=== PATIENT | female | born 1985 | race Hispanic/Latino ===

== ENCOUNTER 2017-10-07 05:43 | Observation (INO) | payer BC ==
[2017-10-06 17:14] VITALS: BP 148/68
[2017-10-06 17:21] LABS: BASOPHILS % (AUTO) 0.7 % (0.0-5.0); EOSINOPHILS % (AUTO) 1.9 % (0.0-8.0); HEMATOCRIT 25.4 % (36-48); LYMPHOCYTES % (AUTO) 34.5 % (21.0-51.0); MEAN CORPUSCULAR HEMOGLOBIN 21.7 pg (27.0-33.0); MEAN CORPUSCULAR VOLUME 67.8 fL (79-99); MONOCYTES % (AUTO) 8.2 % (3.0-13.0); NEUTROPHILS % (AUTO) 54.7 % (40.0-77.0); NUCLEATED RED BLOOD CELLS 0.1 % (0.0-0.19); PLATELET COUNT (AUTO) 331 K/uL (130-400); RED BLOOD CELL COUNT(AUTO) 3.74 MIL/uL (4.00-5.50); RED CELL DISTRIBUTION WIDTH 23.2 % (11.0-15.5); WHITE BLOOD COUNT (AUTO) 5.6 K/uL (4.8-10.8)
[2017-10-07] VITALS (21 sets, daily range): BP systolic 112–141; BP diastolic 68–84
[~2017-10-07] VITALS: Ht 154.9 cm; Wt 102.1 kg
[2017-10-07] MEDS ORDERED: LACTATED RINGERS 1000ML 1,000 ML IV SCH (07:15)
[2017-10-07] MEDS ORDERED: CEFAZOLIN 3GM /D5W 100ML 100 ML IV SCH (07:15)
[2017-10-07] MEDS ORDERED: GLYCOPYRROLATE 0.2 MG/ML 5 ML VIAL ONE (07:21)
[2017-10-07] MEDS ORDERED: MIDAZOLAM HCL 1 MG/ML 2ML VIAL ONE (07:21)
[2017-10-07] MEDS ORDERED: LIDOCAINE PF 2% 5ML ABBOJECT ONE (07:21)
[2017-10-07] MEDS ORDERED: ONDANSETRON HCL 4 MG/2 ML VIAL ONE (07:21)
[2017-10-07] MEDS ORDERED: NEOSTIGMINE 5MG/5ML SYR IV ONE (07:21)
[2017-10-07] MEDS ORDERED: DEXAMETHASONE SOD PHOSPHATE 10MG/ML 1ML VIAL ONE (07:21)
[2017-10-07] MEDS ORDERED: PROPOFOL 10 MG/ML 20ML VIAL IV ONE (07:21)
[2017-10-07] MEDS ORDERED: FENTANYL CITRATE PF 50 MCG/1 ML 2ML VIAL ONE ×5 (07:22→10:28)
[2017-10-07] MEDS: CEFAZOLIN SODIUM 1 GM VIAL ONE ×2 (07:29→07:40)
[2017-10-07] MEDS ORDERED: EPHEDRINE SULFATE 50 MG/ML AMPULE ONE (08:17)
[2017-10-07] MEDS ORDERED: MEPERIDINE-PF 25 MG/ML SYG ONE ×2 (09:59→10:10)
[2017-10-07] MEDS ORDERED: PROMETHAZINE HCL 25 MG/ML 1ML AMPULE IM ONE (10:10)
[2017-10-07] MEDS ORDERED: MEPERIDINE-PF 75 MG/ML SYG IM PRN (11:30)
[2017-10-07] MEDS ORDERED: PROMETHAZINE HCL 25 MG/ML 1ML AMPULE IM PRN ×2 (11:30)
[2017-10-07] MEDS ORDERED: BISACODYL 10 MG SUPP.RECT RC PRN (11:30)
[2017-10-07] MEDS: ACETAMINOPHEN-CODEINE 300/30MG TAB PO PRN ×2 (15:39→19:50)
[2017-10-07] MEDS: DEXTROSE 5 %-0.45 % NACL 1,000 ML IV PRN (18:12)
[2017-10-07] MEDS: SIMETHICONE 80 MG TAB.CHEW PO PRN (22:06)
[2017-10-07] MEDS: DOCUSATE SODIUM 100 MG CAP PO PRN (22:06)
[2017-10-08] MEDS: DEXTROSE 5 %-0.45 % NACL 1,000 ML IV PRN (03:00)
[2017-10-08] MEDS: IBUPROFEN 600 MG TABLET PO PRN ×2 (03:12→09:27)
[2017-10-08 03:42] VITALS: BP 141/83
[2017-10-08 05:31] LABS: HEMATOCRIT 24.5 % (36-48); MEAN CORPUSCULAR HEMOGLOBIN 20.9 pg (27.0-33.0); MEAN CORPUSCULAR HGB CONC 30.9 g/dL (32.0-36.0); MEAN CORPUSCULAR VOLUME 67.7 fL (79-99); PLATELET COUNT (AUTO) 361 K/uL (130-400); RED BLOOD CELL COUNT(AUTO) 3.61 MIL/uL (4.00-5.50); WHITE BLOOD COUNT (AUTO) 12.6 K/uL (4.8-10.8)
[2017-10-08 07:50] VITALS: BP 147/99
[2017-10-08] MEDS: DOCUSATE SODIUM 100 MG CAP PO PRN (09:25)
[2017-10-08] MEDS: SIMETHICONE 80 MG TAB.CHEW PO PRN (09:27)
[2017-10-08 11:36] VITALS: BP 146/94
== END 2017-10-08 14:50 | disposition home or self-care (01) ==
LOC: DAH 05:43 → WSH 05:44
PROVIDERS: ADMIT Obstetrics & Gynecology; ATTEND Obstetrics & Gynecology
DX: N92.1 Excessive and frequent menstruation with irregular cycle (principal); N73.6 Female pelvic peritoneal adhesions (postinfective); I10 Essential (primary) hypertension; D50.0 Iron deficiency anemia secondary to blood loss (chronic); K66.8 Other specified disorders of peritoneum; Z90.710 Acquired absence of both cervix and uterus; Z82.49 Family history of ischemic heart disease and other diseases of the circulatory system
CPT/HCPCS: 36415 ×2; 58552; 84703; 85025; 85027; 86850; 86900; 86901; 88307; 96372; A4215; A4218; A4351; A4510; A4600; A4649 ×2; A4930; C1769 ×2; G0378 ×33; J0690 ×3; J1100; J2001; J2175 ×3; J2250; J2405; J2550 ×2; J2704; J2710; J3010 ×5; J3490 ×2; J7030; J7120 ×2

== ENCOUNTER → 2018-05-19 | Outpatient (CLI) | payer BC | END | disposition home or self-care (01) | LOC: RAH 09:18 | PROVIDERS: ATTEND Internal Medicine Critical Care Medicine | DX: N63.10 Unspecified lump in the right breast, unspecified quadrant (principal); N63.20 Unspecified lump in the left breast, unspecified quadrant; Z80.3 Family history of malignant neoplasm of breast | CPT/HCPCS: 76641 ==